=== PATIENT | male | born 1990 | race Caucasian/White ===

== ENCOUNTER 2018-09-16 17:19 | Emergency (ER) | payer MEDICAID ==
[~2018-09-16] VITALS: Ht 175.3 cm; Wt 76.1 kg
[2018-09-16 17:50] VITALS: BP 114/78
== END 2018-09-16 19:43 | disposition home or self-care (01) ==
LOC: ED 19:33
DX: A08.4 Viral intestinal infection, unspecified (principal); Z00.00 Encounter for general adult medical examination without abnormal findings
CPT/HCPCS: 99281

== ENCOUNTER 2018-09-18 11:44 | Emergency (ER) | payer MEDICAID ==
[~2018-09-18] VITALS: Ht 175.3 cm; Wt 76.1 kg
[2018-09-18 12:08] LABS: BASOPHILS # (AUTO) 0.06 x10^3/uL (0-0.1); BASOPHILS % (AUTO) 1 % (0-1); EOSINOPHILS # (AUTO) 0.41 x10^3/uL (0-0.4); EOSINOPHILS % (AUTO) 5 % (1-7); LYMPHOCYTES # (AUTO) 2.15 x10^3/uL (1-3.4); LYMPHOCYTES % (AUTO) 24 % (22-44); MD NO; MEAN CORPUSCULAR HEMOGLOBIN 31.7 pg (27.5-34.5); MEAN CORPUSCULAR HGB CONC 32.9 g/dL (33.2-36.2); MEAN CORPUSCULAR VOLUME 96.4 fL (81-97); MEAN PLATELET VOLUME 9.3 fL (7.4-10.4); MONOCYTES # (AUTO) 1.01 x10^3/uL (0.2-0.8); MONOCYTES % (AUTO) 11 % (2-9); NEUTROPHILS # (AUTO) 5.34 x10^3/uL (1.8-6.8); NEUTROPHILS % (AUTO) 60 % (42-75); PLATELET COUNT 308 x10^3/uL (130-400); RED BLOOD COUNT 5.01 x10^6/uL (4.38-5.82); RED CELL DISTRIBUTION WIDTH 12.8 % (9.4-14.8)
[2018-09-18 12:20] LABS: ALANINE AMINOTRANSFERASE 20 U/L (12-78); ALBUMIN 4.3 g/dL (3.4-5.0); ANION GAP 9 mmol/L (5-15); CHLORIDE 109 mmol/L (98-107); CREATININE 1.26 mg/dL (0.7-1.3)
[2018-09-18 12:21] LABS: ALKALINE PHOSPHATASE 152 U/L (45-117); BILIRUBIN,TOTAL 0.3 mg/dL (0.2-1.0); TOTAL PROTEIN 8.5 g/dL (6.4-8.2)
--- NOTE | 2018-09-18 13:08 | NUR ---
ASSUMED CARE OF PT AT THIS TIME. US AT BEDSIDE.
--- NOTE | 2018-09-18 13:30 | NUR ---
SMILEY HENAO AT BEDSIDE FOR EVAL. THIS IS A 28 YO MALE WHO PRESENTS TO THE ER C/O DIARRHEA AND ABD CRAMPING X A FEW DAYS. PT REPORTS FAMILY HAS BEEN ILL. DENIES RECENT TRAVEL OR CONTACT WITH ANYONE WHO HAS TRAVELED. PT AO X 4. SKIN PWD. RESP EVEN AND UNLABORED. PT DENIES N/V. PT ON CONT BP AND O2 MONITORS. CALL LIGHT WITHIN REACH. WILL CONT TO MONITOR PT.
[2018-09-18] MEDS ORDERED: LOPERAMIDE 2 MG CAPSULE ONE ×2 (13:51→13:52)
[2018-09-18] MEDS ORDERED: ONDANSETRON ODT 4 MG ONE ×2 (13:51→13:53)
[2018-09-18] MEDS ORDERED: DICYCLOMINE 20 MG TABLET ONE ×2 (13:52→13:53)
[2018-09-18] MEDS ORDERED: DICYCLOMINE 20 MG TABLET PO ONE (14:00)
[2018-09-18] MEDS ORDERED: ONDANSETRON ODT 4 MG PO ONE (14:00)
[2018-09-18] MEDS ORDERED: LOPERAMIDE 2 MG CAPSULE PO ONE (14:00)
[2018-09-18 14:49] VITALS: BP 125/88
== END 2018-09-18 14:51 | disposition home or self-care (01) ==
LOC: ED 13:11
DX: K52.9 Noninfective gastroenteritis and colitis, unspecified (principal); F17.200 Nicotine dependence, unspecified, uncomplicated
CPT/HCPCS: 36415; 76700; 80053; 83690; 85025; 99284; Q0162